=== PATIENT | female | born 1985 | race Caucasian/White ===

== ENCOUNTER → 2018-05-23 | Emergency (ER) | payer OTHER ==
[~2018-05-23] VITALS: Ht 162.6 cm; Wt 52.2 kg
[~2018-05-23] MED LIST: CEFTRIAXONE 1 G VIAL ONE; KETOROLAC TROMETHAMINE 30 MG INJ ONE; ONDANSETRON 4 MG/2 ML VIAL ONE
[2018-05-23] MEDS: IV NORMAL SALINE 1000 ML BAG IV ONE (03:40)
[2018-05-23] MEDS: KETOROLAC TROMETHAMINE 15 MG INJ IV ONE (03:41)
[2018-05-23] MEDS: ONDANSETRON 4 MG/2 ML VIAL IV ONE (03:41)
--- NOTE | 2018-05-23 03:45 | NUR ---
Pt came in to the ED, crying and banging on the door d/t severe pain to L flank area. Pt complaining of L flank sharp pain radiating to abd with nausea started 15 mins prior to ED arrival, woke her up from her sleep. Pt awake, alert, oriented x3. no sob noted. Mod distress d/t pain. Resp even and unlabored. Friends at bedside. Denies any symptoms prior to event this AM. Will cont to monitor. Call light within reach.
--- NOTE | 2018-05-23 03:47 | NUR ---
Pt is currently on her period.
[2018-05-23 04:01] LABS: BASOPHILS % (AUTO) 0.6 % (0.0-2.0); EOSINOPHILS # (AUTO) 0.1 K/uL (0.0-0.7); EOSINOPHILS % (AUTO) 1.6 % (0.0-7.0); HEMATOCRIT 34.1 % (31.2-41.9); HEMOGLOBIN 11.8 g/dL (10.9-14.3); LYMPHOCYTES # (AUTO) 2.1 K/uL (20.0-40.0); LYMPHOCYTES % (AUTO) 43.2 % (20.5-51.5); MEAN CORPUSCULAR HEMOGLOBIN 31.6 uug (24.7-32.8); MEAN CORPUSCULAR HGB CONC 35 g/dL (32.3-35.6); MEAN CORPUSCULAR VOLUME 91.5 fL (75.5-95.3); MONOCYTES # (AUTO) 0.4 K/uL (2.0-10.0); MONOCYTES % (AUTO) 8.3 % (0.0-11.0); NEUTROPHILS # (AUTO) 2.2 K/uL (1.8-8.9); NEUTROPHILS % (AUTO) 46.3 % (38.5-71.5); PLATELET COUNT (AUTO) 226 K/uL (179-408); RED BLOOD CELL COUNT(AUTO) 3.73 MIL/uL (3.63-4.92); WHITE BLOOD COUNT (AUTO) 4.8 K/uL (3.8-11.8)
[2018-05-23 04:12] LABS: BILIRUBIN,DIRECT 0.1 mg/dL (0.0-0.2); BILIRUBIN,TOTAL 0.4 mg/dL (0.2-1.0); CREATININE 0.7 mg/dL (0.6-1.3); POTASSIUM 3.3 mmol/L (3.5-5.1); TOTAL PROTEIN, SERUM 6.5 g/dL (6.4-8.2)
--- NOTE | 2018-05-23 04:23 | NUR ---
Urine collected and sent to lab.
[2018-05-23 04:24] LABS: *BILIRUBIN,URIN NEGATIVE (NEGATIVE); *BLOOD, URINE 3+ (NEGATIVE); *CLARITY,URINE CLOUDY (CLEAR); *KETONES,URINE 1+ (NEGATIVE); *PROTEIN,URINE 1+ (NEGATIVE); *UROBILINOGEN,URINE 0.2 E.U./dl (NORMAL); LEUKOCYTE ESTERASE ,URINE 1+ (NEGATIVE); NITRITE, URINE NEGATIVE (NEGATIVE); UGLUCOSE NEGATIVE (NEGATIVE)
[2018-05-23 04:30] LABS: *URINE HCG, QUAL NEGATIVE (NEGATIVE)
[2018-05-23 04:31] LABS: *COLOR,URINE AMBER (YELLOW)
[2018-05-23 04:38] LABS: BACTERIA,URINE FEW /HPF (NONE SEEN); MUCUS,URINE MANY /LPF (0-FEW); RBC,URINE 50-80 /HPF (0-3); RENAL EPITHELIAL CELLS,URINE FEW /LPF (NONE SEEN); SQUAMOUS EPITHELIAL CELL,UR MANY /HPF (NONE SEEN); TRANSITIONAL EPI CELLS,URINE FEW /LPF (NONE SEEN); WBC,URINE 80-100 /HPF (0-3)
--- NOTE | 2018-05-23 04:46 | NUR ---
Pt was taken to Ct scan
--- NOTE | 2018-05-23 04:53 | NUR ---
Pt is back from CT scan.
[2018-05-23] MEDS: CEFTRIAXONE 1 G in IV DEXTROSE 5% 50 ML IV ONE (05:31)
--- NOTE | 2018-05-23 06:00 | NUR ---
Patient discharged to home in stable conditon. Written and verbal after care instructions given. Patient verbalizes understanding of instructions. Pt is with friends. IV discontinued d/t tx completed. Inner cannula intact. Light pressure with gauze and tape applied to site. No complications. Pt malena procedure well.
== END | disposition home or self-care (01) ==
LOC: ER 03:22
DX: N39.0 Urinary tract infection, site not specified (principal); R10.9 Unspecified abdominal pain; R91.1 Solitary pulmonary nodule; N83.202 Unspecified ovarian cyst, left side; Z91.040 Latex allergy status; Z88.5 Allergy status to narcotic agent
CPT/HCPCS: 36415; 74176; 80048; 80076; 81001; 83690; 84703; 85025; 87077; 87086; 96365; 96375; 99285; J0696; J1885; J2405; A4663; J3490; J7030